=== PATIENT | male | born 1930 | race Caucasian/White ===

== ENCOUNTER → 2018-06-13 | Outpatient (CLI) | payer MEDICARE ==
--- NOTE | 2018-06-13 17:32 | RAD ---
NECK SOFT TISSUE History: Left-sided neck swelling and pain Comparison: None. Findings: Multiple sonographic images of the left neck are submitted. There are some small nodes of the left neck not considered significantly enlarged, largest about 0.3 cm short axis dimension by 0.8 x 0.5 cm. No discrete fluid collection is demonstrated. No other mass is demonstrated. Left jugular vein is somewhat more dilated than the contralateral right side, no internal thrombus demonstrated. Impression: 1. There are some small nodes of the left neck, no significantly enlarged nodes, fluid collection, or other focal mass. Left jugular vein is large in size than the contralateral right side. Electronically signed by: Clifton Barnhart MD (06/13/2018 5:29 PM) [id number]
== END | disposition home or self-care (01) ==
LOC: US 13:58
PROVIDERS: ATTEND Family Medicine
DX: M54.2 Cervicalgia (principal); R22.1 Localized swelling, mass and lump, neck
CPT/HCPCS: 76536